=== PATIENT | male | born 1975 | race American Indian/Alaskan Native ===

== ENCOUNTER 2018-01-02 20:56 | Emergency (ER) | payer SELFPAY ==
[2018-01-03 02:13] VITALS: BP 133/89
--- NOTE | 2018-01-03 03:58 | Emergency Department Report ---
ED General Adult HPI - General Chief complaint: Medical Clearance Stated complaint: B/P ELEVATED Time Seen by Provider: 01/03/18 02:40 Source: patient Mode of arrival: Ambulatory Limitations: No Limitations - History of Present Illness Initial comments: Patient presents for hypertension states history of hypertension however nonadherent with BP medicine prescribed lisinopril 40 by mouth daily no medication in 4 months patient states he was at a job interview blood pressure was high referred to the E R for medical clearance. Patient denies symptoms no headache no dizziness no lightheadedness or shortness of breath no nausea vomiting no back pain pt is a/o x 3 ambulatory gait is steady with no acute distress. plan will refill amlodipine 5 mg po daily pt will follow up with pcp in 2-3 days , maintain bp log, and bring in pcp follow up with pcp in 2-3 days. -: unknown (chronic HTN ) Radiation: non-radiation Severity scale (0 -10): 0 Improves with: none, other (hx ) Worsens with: none Associated Symptoms: denies other symptoms Treatments Prior to Arrival: NSAID - Related Data Allergies Allergy/AdvReac Type Severity Reaction Status Date / Time No Known Allergies Allergy Unverified 01/02/18 21:24 ED Review of Systems ROS: Stated complaint: B/P ELEVATED Other details as noted in HPI Constitutional: denies: chills, fever Eyes: denies: eye pain, eye discharge, vision change ENT: denies: ear pain, throat pain Respiratory: denies: cough, shortness of breath, wheezing Cardiovascular: denies: chest pain, palpitations Endocrine: no symptoms reported Gastrointestinal: denies: abdominal pain, nausea, diarrhea Genitourinary: denies: urgency, dysuria Musculoskeletal: denies: back pain, joint swelling, arthralgia Skin: denies: rash, lesions Neurological: denies: headache, weakness, paresthesias Psychiatric: denies: anxiety, depression Hematological/Lymphatic: denies: easy bleeding, easy bruising ED Past Medical Hx - Past Medical History Hx Hypertension: Yes Hx CVA: Yes (objective:) Hx Congestive Heart Failure: Yes Hx Diabetes: Yes Hx Deep Vein Thrombosis: Yes Hx Pulmonary Embolism: No Hx GERD: No Hx Liver Disease: No Hx Renal Disease: No (1) Hx of Cancer: No Hx Sickle Cell Disease: No Hx Arthritis: No Hx Headaches / Migraines: No Hx Seizures: No (is) Hx Kidney Stones: No Hx Psychiatric Treatment: No Hx Asthma: No Hx COPD: No Hx Tuberculosis: No Hx Dementia: No Hx HIV: (5) - Surgical History Past Surgical History?: No Hx Coronary Stent: No Hx Open Heart Surgery: No Hx Pacemaker: No Hx Internal Defibrillator: No Hx Cholecystectomy: No Hx Appendectomy: No Hx Breast Surgery: No - Family History Family history: no significant, asthma, CAD/NE, cancer, connective tissue, diabetes, hypertension, lung disease, renal disease, sudden , vascular disease, other - Social History Smoking Status: Current Every Day Smoker Substance Use Type: None, Alcohol, Cocaine, Heroin, Marijuana, Non Opiate Pain, Prescribed, Tranquilizers, Methamphetamines, Other ED Physical Exam - General Limitations: No Limitations General appearance: alert, in no apparent distress - Head Head exam: Present: atraumatic, normocephalic - Eye Eye exam: Present: normal appearance - ENT ENT exam: Present: mucous membranes moist - Neck Neck exam: Present: normal inspection, full ROM. Absent: lymphadenopathy, thyromegaly (is) - Respiratory Respiratory exam: Present: normal lung sounds bilaterally. Absent: respiratory distress - Cardiovascular Cardiovascular Exam: Present: regular rate, normal rhythm. Absent: systolic murmur, diastolic murmur, rubs, gallop - GI/Abdominal GI/Abdominal exam: Present: soft, normal bowel sounds (irregularly irregular). Absent: tenderness, bruit (.), hernia - Rectal Rectal exam: Present: deferred - Extremities Exam Extremities exam: Present: normal inspection - Expanded Lower Extremity Exam Left Foot/Toe exam: Present: full ROM, tenderness, ecchymosis, erythema, puncture wound, nail avulsion. Absent: swelling, abrasion, laceration, deformity, crepidus, dislocation, foreign body, calcaneal tenderness, tenderness at base of 5th metatarsal, subungual hematoma Neuro vascular tendon exam: Present: no vascular compromise. Absent: pulse deficit, abnormal cap refill, motor deficit, sensory deficit, tendon deficit, extremity cold to touch, pallor, abnormal 2-point discrimination, decreased fine /light touch, foot drop, peroneal nerve deficit, significant pain with passive ROM of distal joint Gait: Positive: observed and limited by pain ED Course Vital Signs 01/02/18 01/03/18 21:20 02:12 Temperature 98 F Pulse Rate 113 H 96 H Respiratory 18 17 Rate Blood Pressure 139/96 Blood Pressure 133/89 [Left] O2 Sat by Pulse 97 98 Oximetry Critical care attestation.: If time is entered above; I have spent that time in minutes in the direct care of this critically ill patient, excluding procedure time. ED Disposition Condition: Stable Referrals: PRIMARY CARE, [Primary Care Provider] - 3-5 Days
--- NOTE | 2018-01-03 04:37 | Emergency Department Report ---
ED General Adult HPI - General Chief complaint: Medical Clearance Stated complaint: B/P ELEVATED Time Seen by Provider: 01/03/18 02:40 Source: patient Mode of arrival: Ambulatory Limitations: No Limitations - History of Present Illness Initial comments: A 42-year-old -[place] male with history of bronchitis and hypertension patient presents for cough productive green yellow sputum patient denies fevers or chills no wheezing intermittent sore throat and rhinorrhea and postnasal drip . No shortness of breath chest or back pain secondary complaint is hypertension patient advises taken [id number] blood pressure medicines states he went to a job interview today and was referred to the ER because of elevated blood pressure EP is 169/110 patient was previously taking lisinopril 10 mg daily however has not had BP meds in over a year patient denies dizziness denies headache denies chest pain denies nausea vomiting patient is a note 3 with steady gait preparation to baseline Onset/Timin -: week(s) Location: chest, abdomen Radiation: non-radiation Severity scale (0 -10): 4 Quality: burning Consistency: intermittent Improves with: none, medication Worsens with: eating, movement Associated Symptoms: cough Treatments Prior to Arrival: none - Related Data Previous Rx's Medication Instructions Recorded Last Taken Type ALBUTEROL Inhaler(NF) [VENTOLIN 1 puff IH Q4-6H PRN #1 inha 01/03/18 Unknown Rx Inhaler(NF)] Ibuprofen 800 mg PO TID PRN #30 tablet 01/03/18 Unknown Rx hydroCHLOROthiazide [HCTZ] 25 mg PO QDAY #30 tablet 01/03/18 Unknown Rx predniSONE [Deltasone] 40 mg PO QDAY 5 Days #10 tab 01/03/18 Unknown Rx Allergies Allergy/AdvReac Type Severity Reaction Status Date / Time No Known Allergies Allergy Unverified 01/02/18 21:24 ED Review of Systems ROS: Stated complaint: B/P ELEVATED Other details as noted in HPI Constitutional: denies: chills, fever Eyes: denies: eye pain, eye discharge, vision change ENT: denies: ear pain, throat pain Respiratory: no symptoms reported Cardiovascular: denies: chest pain, palpitations Endocrine: no symptoms reported Gastrointestinal: denies: abdominal pain, nausea, diarrhea Genitourinary: denies: urgency, dysuria Musculoskeletal: denies: back pain, joint swelling, arthralgia Skin: denies: rash, lesions Neurological: denies: headache, weakness, paresthesias Psychiatric: denies: anxiety, depression Hematological/Lymphatic: denies: easy bleeding, easy bruising ED Past Medical Hx - Past Medical History Hx Hypertension: Yes - Surgical History Past Surgical History?: No - Social History Smoking Status: Current Every Day Smoker Substance Use Type: None - Medications Home Medications: Home Medications Medication Instructions Recorded Confirmed Last Taken Type ALBUTEROL Inhaler(NF) [VENTOLIN 1 puff IH Q4-6H PRN #1 inha 01/03/18 Unknown Rx Inhaler(NF)] Ibuprofen 800 mg PO TID PRN #30 tablet 01/03/18 Unknown Rx hydroCHLOROthiazide [HCTZ] 25 mg PO QDAY #30 tablet 01/03/18 Unknown Rx predniSONE [Deltasone] 40 mg PO QDAY 5 Days #10 tab 01/03/18 Unknown Rx ED Physical Exam - General Limitations: No Limitations General appearance: alert, in no apparent distress - Head Head exam: Present: atraumatic, normocephalic - Eye Eye exam: Present: normal appearance - ENT ENT exam: Present: normal exam, mucous membranes moist - Expanded ENT Exam Expanded Ear exam: Present: normal external inspection Mouth exam: Present: normal external inspection. Absent: tongue normal Teeth exam: Present: normal inspection Throat exam: Positive: normal inspection, tonsillar erythema. Negative: tonsillomegaly, tonsillar exudate, R peritonsillar mass, L peritonsillar mass - Neck Neck exam: Present: normal inspection, full ROM. Absent: lymphadenopathy, thyromegaly - Respiratory Respiratory exam: Present: normal lung sounds bilaterally. Absent: respiratory distress - Cardiovascular Cardiovascular Exam: Present: regular rate, normal rhythm. Absent: systolic murmur, diastolic murmur, rubs, gallop - GI/Abdominal GI/Abdominal exam: Present: soft, normal bowel sounds. Absent: distended, tenderness, guarding, bruit, hernia - Rectal Rectal exam: Present: deferred - Extremities Exam Extremities exam: Present: normal inspection - Back Exam Back exam: Present: normal inspection - Neurological Exam Neurological exam: Present: alert, oriented X3, normal gait - Psychiatric Psychiatric exam: Present: normal affect, normal mood - Skin Skin exam: Present: warm, dry, intact, normal color. Absent: rash ED Course Vital Signs 01/02/18 01/03/18 21:20 02:12 Temperature 98 F Pulse Rate 113 H 96 H Respiratory 18 17 Rate Blood Pressure 139/96 Blood Pressure 133/89 [Left] O2 Sat by Pulse 97 98 Oximetry ED Medical Decision Making - Radiology Data Patient refuses chest x-ray as he has to go to work - Medical Decision Making This is a URI no fever no shortness of breath no wheezing on exam patient is by mouth hydrating updated vital signs heart rate 94 O2 sat 97% on room air BP 133/ 89 temp 98.4 days no fever plan patient advised to stop [id number] BP medicines use Coricidin products prescribed Flonase and Zyrtec Tessalon Perles for cough patient remained pain BP and oriented PCP appointment . Hydrochlorothiazide by mouth 25 daily patient verbalized agreement and understanding of same with DC'd home in stable condition at this time Critical care attestation.: If time is entered above; I have spent that time in minutes in the direct care of this critically ill patient, excluding procedure time. ED Disposition Clinical Impression: Bronchitis, Essential hypertension URI (upper respiratory infection) Qualifiers: URI type: unspecified viral URI Qualified Code(s): J06.9 - Acute upper respiratory infection, unspecified Disposition: DC-01 TO HOME OR SELFCARE Is pt being admited?: No Does the pt Need Aspirin: No Condition: Good Instructions: Chronic Bronchitis (ED), Hypertension (ED) Prescriptions: ALBUTEROL Inhaler(NF) [VENTOLIN Inhaler(NF)] 1 puff IH Q4-6H PRN #1 inha PRN Reason: sob wheezing hydroCHLOROthiazide [HCTZ] 25 mg PO QDAY #30 tablet Ibuprofen 800 mg PO TID PRN #30 tablet PRN Reason: pain fever predniSONE [Deltasone] 40 mg PO QDAY 5 Days #10 tab Referrals: PRIMARY CARE,MD [Primary Care Provider] - 3-5 Days Forms: Work/School Release Form(ED) Time of Disposition: 04:53
== END 2018-01-03 05:05 | disposition home or self-care (01) ==
LOC: ED 20:56
DX: J40 Bronchitis, not specified as acute or chronic (principal); J06.9 Acute upper respiratory infection, unspecified; I10 Essential (primary) hypertension; F17.200 Nicotine dependence, unspecified, uncomplicated
CPT/HCPCS: 99281

== ENCOUNTER 2018-09-19 07:57 | Emergency (ER) | payer OTHER ==
[2018-09-19 10:26] VITALS: BP 151/117
--- NOTE | 2018-09-19 10:27 | Emergency Department Report ---
ED Headache HPI - General Chief Complaint: Headache Stated Complaint: HEADACHE Time Seen by Provider: 09/19/18 09:52 - History of Present Illness Initial Comments: 42-year-old male with history of hypertension, noncompliant with medication, presents to ED with headache 1 week. Patient reports history of intermittent headaches. States pain is diffuse. Denies fever, nausea, vomiting, weakness or numbness. Patient states he's been on blood pressure medications times one year, hasn't taken his last BP meds. Believes he was taking lisinopril in the past. Timing/Duration: 1 week Quality: moderate Head Injury Location: global Recent Head Trauma: no recent headache/trauma Associated Symptoms: denies: fever/chills, nausea/vomiting, nasal congestion, nasal drainage, numbness in legs/feet, sinus infection, stiff neck, vision changes Allergies/Adverse Reactions: Allergies No Known Allergies Allergy (Verified 09/19/18 08:00) Home Medications: Ambulatory Orders ALBUTEROL Inhaler(NF) [VENTOLIN Inhaler(NF)] 1 puff IH Q4-6H PRN #1 inha 8 Ibuprofen 800 mg PO TID PRN #30 tablet 01/03/18 hydroCHLOROthiazide [HCTZ] 25 mg PO QDAY #30 tablet 01/03/18 predniSONE [Deltasone] 40 mg PO QDAY 5 Days #10 tab 01/03/18 Butalb/Acetamin/Caff 50-325-40 [Fioricet] 1 tab PO Q6HR PRN #10 tab 09/19/18 Lisinopril [Zestril TAB] 20 mg PO QDAY #30 tablet 09/19/18 ED Review of Systems ROS: Stated complaint: HEADACHE Other details as noted in HPI Comment: All other systems reviewed and negative Constitutional: denies: chills, fever Eyes: denies: vision change Gastrointestinal: denies: nausea, vomiting Neurological: headache. denies: weakness, numbness, paresthesias, abnormal ga it, vertigo ED Past Medical Hx - Past Medical History Hx Hypertension: Yes - Social History Smoking Status: Current Every Day Smoker Substance Use Type: Marijuana - Medications Home Medications: Home Medications Medication Instructions Recorded Confirmed Last Taken Type ALBUTEROL Inhaler(NF) [VENTOLIN 1 puff IH Q4-6H PRN #1 inha 01/03/18 Unknown Rx Inhaler(NF)] Ibuprofen 800 mg PO TID PRN #30 tablet 01/03/18 Unknown Rx hydroCHLOROthiazide [HCTZ] 25 mg PO QDAY #30 tablet 01/03/18 Unknown Rx predniSONE [Deltasone] 40 mg PO QDAY 5 Days #10 tab 01/03/18 Unknown Rx Butalb/Acetamin/Caff 50-325-40 1 tab PO Q6HR PRN #10 tab 09/19/18 Unknown Rx [Fioricet] Lisinopril [Zestril TAB] 20 mg PO QDAY #30 tablet 09/19/18 Unknown Rx ED Physical Exam - General Limitations: No Limitations General appearance: alert, in no apparent distress - Head Head exam: Present: atraumatic, normocephalic - Eye Eye exam: Present: normal appearance, PERRL, EOMI - ENT ENT exam: Present: mucous membranes moist - Neck Neck exam: Present: normal inspection, full ROM - Respiratory Respiratory exam: Present: normal lung sounds bilaterally. Absent: respiratory distress - Cardiovascular Cardiovascular Exam: Present: regular rate, normal rhythm - GI/Abdominal GI/Abdominal exam: Absent: distended - Extremities Exam Extremities exam: Present: normal inspection - Neurological Exam Neurological exam: Present: alert, oriented X3, CN II-XII intact, normal gait. Absent: motor sensory deficit - Psychiatric Psychiatric exam: Present: normal affect, normal mood - Skin Skin exam: Present: warm, dry, intact, normal color ED Course Vital Signs 09/19/18 09/19/18 09/19/18 08:00 08:07 09:52 Temperature 98.2 F Pulse Rate 103 H Respiratory 18 15 Rate Blood Pressure 125/99 Blood Pressure 153/111 [Left] Blood Pressure 125/99 [Right] O2 Sat by Pulse 100 Oximetry 09/19/18 10:25 Temperature Pulse Rate 96 H Respiratory 20 Rate Blood Pressure Blood Pressure 151/117 [Left] Blood Pressure [Right] O2 Sat by Pulse Oximetry ED Medical Decision Making - Medical Decision Making - WILSON x 1 week - no assoc symptoms - neuro exam normal - BP elevated, med noncompliance - will refill lisinopril - outpt f/u advised - return precautions given - Differential Diagnosis tension WILSON, hypertensive WILSON, migraine WILSON Critical care attestation.: If time is entered above; I have spent that time in minutes in the direct care of this critically ill patient, excluding procedure time. ED Disposition Clinical Impression: Headache, Hypertension Disposition: - TO HOME OR SELFCARE Is pt being admited?: No Condition: Stable Instructions: Acute Headache (ED), Hypertension (ED) Prescriptions: Butalb/Acetamin/Caff 50-325-40 [Fioricet] 1 tab PO Q6HR PRN #10 tab PRN Reason: Headache Lisinopril [Zestril TAB] 20 mg PO QDAY #30 tablet Referrals: [facility] [Other] - 3-5 Days [facility] [Outside] - 3-5 Days Time of Disposition: 10:27
== END 2018-09-19 10:47 | disposition home or self-care (01) ==
LOC: ED 07:57
DX: I10 Essential (primary) hypertension (principal); F17.200 Nicotine dependence, unspecified, uncomplicated; F12.10 Cannabis abuse, uncomplicated
CPT/HCPCS: 99282

== ENCOUNTER 2021-06-05 11:12 | Emergency (ER) | payer SELFPAY ==
[2021-06-05] MEDS ORDERED: ACETAMINOPHEN 325 MG TAB PO ONE (12:19)
--- NOTE | 2021-06-05 12:21 | Emergency Department Report ---
ED Headache HPI - General Chief Complaint: Headache Stated Complaint: HEADACHES Time Seen by Provider: 06/05/21 11:59 Source: patient Exam Limitations: no limitations - History of Present Illness Initial Comments: 45-year-old -[place] male with a past medical history of diabetes and hypertension presents to the ER today with complaints of needing a refill on his lisinopril and HCTZ and headache. Patient states that he has been having bitemporal and occipital headache constantly for the past 2 weeks. He believes it is related to his elevated blood pressure since he has been out of his lisinopril for the past 2 weeks. He states that he currently does not have a primary care doctor. He describes the headache as constant and throbbing in nature. He states that he did take a baby aspirin for the first time this morning and it did ease the pain. He denies any associated nausea, vomiting, neck pain, fever, chills, vision changes, speech changes, numbness, tingling or focal deficits. He reports no chest pain or shortness of breath or any additional symptoms at this time. Allergies/Adverse Reactions: Allergies No Known Allergies Allergy (Verified 06/05/21 11:13) Home Medications: Ambulatory Orders ALBUTEROL Inhaler(NF) [VENTOLIN Inhaler(NF)] 1 puff IH Q4-6H PRN #1 inha 01/03/18 predniSONE [Deltasone] 40 mg PO QDAY 5 Days #10 tab 01/03/18 Butalb/Acetamin/Caff 50-325-40 [Fioricet] 1 tab PO Q6HR PRN #10 tab 09/19/18 Acetaminophen/Codeine [Tylenol /Codeine # 3 tab] 1 tab PO Q6H PRN #14 tab 10/08/19 Chlorhexidine Gluconate [Hibiclens] 10 ml TP BID #236 liquid 10/08/19 Clindamycin [Clindamycin CAP] 150 mg PO Q6HR #40 capsule 10/08/19 Acetaminophen [Acetaminophen 8 Hour] 650 mg PO Q8HR #30 06/05/21 Ibuprofen [Motrin] 600 mg PO Q8H PRN #30 tablet 06/05/21 hydroCHLOROthiazide [HCTZ] 25 mg PO QDAY #30 tablet 06/05/21 lisinopriL [Zestril TAB] 20 mg PO QDAY #30 tablet 06/05/21 ED Review of Systems ROS: Stated complaint: HEADACHES Other details as noted in HPI Comment: All other systems reviewed and negative Constitutional: denies: chills, fever Eyes: denies: eye pain, eye discharge, vision change ENT: denies: ear pain, throat pain Respiratory: denies: cough, shortness of breath, wheezing Cardiovascular: denies: chest pain, palpitations Endocrine: no symptoms reported Gastrointestinal: denies: abdominal pain, nausea, diarrhea Genitourinary: denies: urgency, dysuria Musculoskeletal: denies: back pain, joint swelling, arthralgia Skin: denies: rash, lesions Neurological: headache. denies: weakness, numbness, paresthesias, confusion, abnormal gait, vertigo Psychiatric: denies: anxiety, depression, auditory hallucinations, visual hallucinations, homicidal thoughts, suicidal thoughts Hematological/Lymphatic: denies: easy bleeding, easy bruising, swollen glands ED Past Medical Hx - Past Medical History Hx Hypertension: Yes Hx Diabetes: Yes - Surgical History Past Surgical History?: No - Social History Smoking Status: Current Every Day Smoker Substance Use Type: Marijuana - Medications Home Medications: Home Medications Medication Instructions Recorded Confirmed Last Taken Type ALBUTEROL Inhaler(NF) [VENTOLIN 1 puff IH Q4-6H PRN #1 inha 01/03/18 Unknown Rx Inhaler(NF)] predniSONE [Deltasone] 40 mg PO QDAY 5 Days #10 tab 01/03/18 Unknown Rx Butalb/Acetamin/Caff 50-325-40 1 tab PO Q6HR PRN #10 tab 09/19/18 Unknown Rx [Fioricet] Acetaminophen/Codeine [Tylenol 1 tab PO Q6H PRN #14 tab 10/08/19 Unknown Rx /Codeine # 3 tab] Chlorhexidine Gluconate [Hibiclens] 10 ml TP BID #236 liquid 10/08/19 Unknown Rx Clindamycin [Clindamycin CAP] 150 mg PO Q6HR #40 capsule 10/08/19 Unknown Rx Acetaminophen [Acetaminophen 8 650 mg PO Q8HR #30 06/05/21 Unknown Rx Hour] Ibuprofen [Motrin] 600 mg PO Q8H PRN #30 tablet 06/05/21 Unknown Rx hydroCHLOROthiazide [HCTZ] 25 mg PO QDAY #30 tablet 06/05/21 Unknown Rx lisinopriL [Zestril TAB] 20 mg PO QDAY #30 tablet 06/05/21 Unknown Rx ED Physical Exam - General Limitations: No Limitations General appearance: alert, in no apparent distress, obese - Head Head exam: Present: atraumatic, normocephalic, normal inspection - Eye Eye exam: Present: normal appearance, PERRL, EOMI Pupils: Present: normal accommodation - ENT ENT exam: Present: normal exam, mucous membranes moist, TM's normal bilaterally - Neck Neck exam: Present: normal inspection, full ROM. Absent: meningismus - Respiratory Respiratory exam: Present: normal lung sounds bilaterally. Absent: respiratory distress, wheezes, rales, rhonchi, stridor - Cardiovascular Cardiovascular Exam: Present: regular rate, normal rhythm, normal heart sounds - GI/Abdominal GI/Abdominal exam: Present: soft. Absent: distended, tenderness, guarding, rebound - Neurological Exam Neurological exam: Present: alert, oriented X3, CN II-XII intact, normal gait - Psychiatric Psychiatric exam: Present: normal affect, normal mood - Skin Skin exam: Present: intact ED Course Vital Signs 06/05/21 06/05/21 11:19 12:45 Temperature 99.0 F 98.2 F Pulse Rate 107 H 93 H Respiratory 20 16 Rate Blood Pressure 162/105 Blood Pressure 149/110 [Right] O2 Sat by Pulse 97 98 Oximetry ED Medical Decision Making - Medical Decision Making The patient presented to the emergency department with a headache related to his blood pressure and the fact that he has been out of his blood pressure medication for 2 weeks. He is also requesting a refill on his blood pressure medications. The patient is resting comfortably and , is alert, talkative, interactive and in no distress. The patient appears well and appears well hydrated. The examination is unremarkable and benign. The patient is neurologically intact, has a normal mental status, and is ambulatory in the ER. The history, exam, diagnostic testing and the patient's current condition does not suggest meningitis, stroke, sepsis, subarachnoid hemorrhage, intracranial bleeding, encephalitis, or other significant pathology to warrant further testing, continued ED treatment, admission, neurological consultation or other specialist evaluation at this point. His blood pressure was noted to be elevated during stay, and thus likely to him not being on his blood pressure medication for about a week but his remaining vitals were stable. Patient will be given a refill on his blood pressure medications. He can take Tylenol and ibuprofen at home for any pain. He will be given referral to local PCP for continued monitoring of his blood pressure and for the necessary refills.. The patient's condition is stable and appropriate for discharge. The patient will pursue further outpatient evaluation with the primary care physician. Critical care attestation.: If time is entered above; I have spent that time in minutes in the direct care of this critically ill patient, excluding procedure time. ED Disposition Clinical Impression: Headache, Medication refill, Uncontrolled hypertension Disposition: HOME / SELF CARE / HOMELESS Is pt being admited?: No Does the pt Need Aspirin: No Condition: Stable Instructions: General Headache Without Cause, Medicine Refill at the Emergency Department, Hypertension, Adult, [id number], Hypertension (ED) Additional Instructions: I recommend that you start taking your lisinopril today and as prescribed. You can take Tylenol and ibuprofen as prescribed to help with any headache or pain. I did recommend that you call your insurance company and see if they can refer you to a local primary care doctor for continued monitoring of your hypertension and continued refills on your blood pressure medication. Your primary care doctor will also be provided for you in your discharge instructions. Return to the ER if your symptoms worsens or changes in any way. Prescriptions: Acetaminophen [Acetaminophen 8 Hour] 650 mg PO Q8HR #30 hydroCHLOROthiazide [HCTZ] 25 mg PO QDAY #30 tablet Ibuprofen [Motrin] 600 mg PO Q8H PRN #30 tablet PRN Reason: Pain lisinopriL [Zestril TAB] 20 mg PO QDAY #30 tablet Referrals: MIMI MOORE MD [Staff Physician] - 3-5 Days Time of Disposition: 12:23
[2021-06-05 12:48] VITALS: BP 149/110
== END 2021-06-05 13:13 | disposition home or self-care (01) ==
LOC: ED 11:12
DX: I10 Essential (primary) hypertension (principal); R51.9 Headache, unspecified; E11.9 Type 2 diabetes mellitus without complications; F17.200 Nicotine dependence, unspecified, uncomplicated; Z76.0 Encounter for issue of repeat prescription; Z79.899 Other long term (current) drug therapy
CPT/HCPCS: 99282

== ENCOUNTER 2022-01-25 00:20 | Emergency (ER) | payer SELFPAY ==
--- NOTE | 2022-01-25 00:59 | XRay Report ---
LEFT ELBOW 3 VIEW(S) INDICATION / CLINICAL INFORMATION: PAIN COMPARISON: None available. FINDINGS: BONES / JOINT(S): No acute fracture or subluxation. No significant arthritis. SOFT TISSUES: No significant abnormality. ADDITIONAL FINDINGS: None. IMPRESSION: 1. No acute findings. Signer Name: Sami De Oliveira MD Signed: 01/25/2022 12:54 AM Workstation Name: [email or web address]
[2022-01-25] MEDS ORDERED: LISINOPRIL 10 MG TAB PO ONE (08:30)
[2022-01-25] MEDS ORDERED: IBUPROFEN 800 MG TAB PO ONE (08:30)
--- NOTE | 2022-01-25 09:12 | Emergency Department Report ---
ED General Adult HPI - General Chief complaint: Extremity Injury, Upper Stated complaint: SWOLLEN ELBOW,CONGESTION PUI?: No Time Seen by Provider: 01/25/22 08:14 Source: patient Mode of arrival: Ambulatory Limitations: No Limitations - History of Present Illness Initial comments: 46 YO COMES TO ER WITH 3 COMPLAINTS 1. L ELBOW PAIN FOR WEEKS NO FALL OR TRAUMA NO CP NO SOB 2 COUGH FOR MONTHS SMOKER NO FEVER NO SOB 3. HEADACHE OFF HIS BP MEDS DUE TO INSURANCE CHANGE NO CP NO SOB NEURO INTACT PT NOW HAS NEW JOB BUT INSURANCE HAS NOT KICKED IN YET. HE HAS TAKEN NOTHING PROGRAMMING DIRECTOR IN ER FOR COMPLAINTS AND HAS NOT HAD OTHER MEDICAL CARE -: Gradual, month(s) Location: upper extremity Severity scale (0 -10): 8 Consistency: intermittent Improves with: immobilization Worsens with: movement Associated Symptoms: denies other symptoms, cough, headaches. denies: confusion, chest pain, diaphoresis, fever/chills, loss of appetite, malaise, nausea/vomiting, rash, seizure, shortness of breath, syncope, weakness Treatments Prior to Arrival: NSAID - Related Data Previous Rx's Medication Instructions Recorded Last Taken Type ALBUTEROL Inhaler(NF) [VENTOLIN 1 puff IH Q4-6H PRN #1 inha 01/03/18 Unknown Rx Inhaler(NF)] predniSONE [Deltasone] 40 mg PO QDAY 5 Days #10 tab 01/03/18 Unknown Rx Butalb/Acetamin/Caff 50-325-40 1 tab PO Q6HR PRN #10 tab 09/19/18 Unknown Rx [Fioricet] Acetaminophen/Codeine [Tylenol 1 tab PO Q6H PRN #14 tab 10/08/19 Unknown Rx /Codeine # 3 tab] Chlorhexidine Gluconate [Hibiclens] 10 ml TP BID #236 liquid 10/08/19 Unknown Rx Clindamycin [Clindamycin CAP] 150 mg PO Q6HR #40 capsule 10/08/19 Unknown Rx Acetaminophen [Acetaminophen 8 650 mg PO Q8HR #30 06/05/21 Unknown Rx Hour] Ibuprofen [Motrin] 600 mg PO Q8H PRN #30 tablet 06/05/21 Unknown Rx hydroCHLOROthiazide [HCTZ] 25 mg PO QDAY #30 tablet 06/05/21 Unknown Rx lisinopriL [Zestril TAB] 20 mg PO QDAY #30 tablet 01/25/22 Unknown Rx Allergies Allergy/AdvReac Type Severity Reaction Status Date / Time No Known Allergies Allergy Verified 06/05/21 11:13 ED Review of Systems ROS: Stated complaint: SWOLLEN ELBOW,CONGESTION Other details as noted in HPI Comment: All other systems reviewed and negative ED Past Medical Hx - Past Medical History Previous Medical History?: Yes Hx Hypertension: Yes Hx Diabetes: Yes - Surgical History Past Surgical History?: Yes - Family History Family history: no significant - Social History Smoking Status: Current Every Day Smoker Substance Use Type: Alcohol - Medications Home Medications: Home Medications Medication Instructions Recorded Confirmed Last Taken Type ALBUTEROL Inhaler(NF) [VENTOLIN 1 puff IH Q4-6H PRN #1 inha 01/03/18 Unknown Rx Inhaler(NF)] predniSONE [Deltasone] 40 mg PO QDAY 5 Days #10 tab 01/03/18 Unknown Rx Butalb/Acetamin/Caff 50-325-40 1 tab PO Q6HR PRN #10 tab 09/19/18 Unknown Rx [Fioricet] Acetaminophen/Codeine [Tylenol 1 tab PO Q6H PRN #14 tab 10/08/19 Unknown Rx /Codeine # 3 tab] Chlorhexidine Gluconate [Hibiclens] 10 ml TP BID #236 liquid 10/08/19 Unknown Rx Clindamycin [Clindamycin CAP] 150 mg PO Q6HR #40 capsule 10/08/19 Unknown Rx Acetaminophen [Acetaminophen 8 650 mg PO Q8HR #30 06/05/21 Unknown Rx Hour] Ibuprofen [Motrin] 600 mg PO Q8H PRN #30 tablet 06/05/21 Unknown Rx hydroCHLOROthiazide [HCTZ] 25 mg PO QDAY #30 tablet 06/05/21 Unknown Rx lisinopriL [Zestril TAB] 20 mg PO QDAY #30 tablet 01/25/22 Unknown Rx ED Physical Exam - General Limitations: No Limitations General appearance: alert, in no apparent distress - Head Head exam: Present: atraumatic, normocephalic - Eye Eye exam: Present: normal appearance - ENT ENT exam: Present: mucous membranes moist - Neck Neck exam: Present: normal inspection - Respiratory Respiratory exam: Present: normal lung sounds bilaterally. Absent: respiratory distress - Cardiovascular Cardiovascular Exam: Present: regular rate, normal rhythm. Absent: systolic murmur, diastolic murmur, rubs, gallop - GI/Abdominal GI/Abdominal exam: Present: soft, normal bowel sounds - Rectal Rectal exam: Present: deferred - Extremities Exam Extremities exam: Present: normal inspection - Back Exam Back exam: Present: normal inspection - Neurological Exam Neurological exam: Present: alert, oriented X3 - Psychiatric Psychiatric exam: Present: normal affect, normal mood - Skin Skin exam: Present: warm, dry, intact, normal color. Absent: rash ED Course Vital Signs 01/25/22 01/25/22 00:26 08:47 Temperature 98.6 F Pulse Rate 105 H 82 Respiratory 18 Rate Blood Pressure 189/110 144/101 O2 Sat by Pulse 100 Oximetry ED Medical Decision Making - Radiology Data Radiology results: report reviewed, image reviewed NAP - Medical Decision Making Vital Signs 01/25/22 01/25/22 00:26 08:47 Temperature 98.6 F Pulse Rate 105 H 82 Respiratory 18 Rate Blood Pressure 189/110 144/101 O2 Sat by Pulse 100 Oximetry MEDICATED FOR HIS A/C HTN RX FOR LISINOPRIL ON DC XRAY ELBOW NAP XRAY CHEST NAP TAKING PO NON ILL APPEARING FULL ROM LUE NO COUGHING IN ER NO FEVER OR CHILLS DC HOME WITH DC PLAN OF CARE INCLUDING DIET, MEDS, ACTIVITY AND FOLLOW UP. HE WILL MONITOR HIS BP. GOOD RX CARD PROVIDED. - Differential Diagnosis RO URI/HTN/GOUT Critical care attestation.: If time is entered above; I have spent that time in minutes in the direct care of this critically ill patient, excluding procedure time. ED Disposition Clinical Impression: Elbow pain, Cough, Non-adherence to medical treatment HTN (hypertension) Qualifiers: Hypertension type: unspecified Qualified Code(s): I10 - Essential (primary) hypertension Disposition: HOME / SELF CARE / HOMELESS Is pt being admited?: No Does the pt Need Aspirin: No Condition: Stable Instructions: Preventing Hypertension, Hypertension (ED) Additional Instructions: XRAYS NORMAL MONITOR YOUR BP SEE ATTACHED INSTRUCTIONS TAKE BP MED DAILY MOTRIN FOR ELBOW PAIN OVER THE COUNTER SYMPTOM RELIEF FOR COUGH FOLLOW UP WITH PCP REFERRAL BELOW Prescriptions: lisinopriL [Zestril TAB] 20 mg PO QDAY #30 tablet Referrals: HAILEY DONNELLY MD [Primary Care Provider] - 3-5 Days Forms: Work/School Release Form(ED) Time of Disposition: 10:21
--- NOTE | 2022-01-25 09:31 | XRay Report ---
CHEST 2 VIEWS INDICATION / CLINICAL INFORMATION: cough. COMPARISON: Radiograph 07/11/2012 FINDINGS: SUPPORT DEVICES: None. HEART / MEDIASTINUM: No significant abnormality. LUNGS / PLEURA: No significant pulmonary or pleural abnormality. No pneumothorax. ADDITIONAL FINDINGS: No significant additional findings. IMPRESSION: 1. No acute findings. Signer Name: Rashaad Reilly MD Signed: 01/25/2022 9:27 AM Workstation Name: [email or web address]
[2022-01-25 11:21] VITALS: BP 145/98
== END 2022-01-25 11:14 | disposition home or self-care (01) ==
LOC: ED 00:20
DX: M25.522 Pain in left elbow (principal); R05.9 Cough, unspecified; R51.9 Headache, unspecified; Z91.14 Patient's other noncompliance with medication regimen; I10 Essential (primary) hypertension; E11.9 Type 2 diabetes mellitus without complications; F17.200 Nicotine dependence, unspecified, uncomplicated; Z72.89 Other problems related to lifestyle; Z79.899 Other long term (current) drug therapy
CPT/HCPCS: 71046; 99283